=== PATIENT | male | born 1970 | race Caucasian/White ===

== ENCOUNTER 2019-03-05 10:45 | Emergency (ER) | payer MEDICARE, MEDICAID ==
[~2019-03-05] VITALS: Ht 182.9 cm; Wt 65.0 kg
[~2019-03-05 10:45] MED LIST: NO HOME MEDS
[2019-03-05 11:01] VITALS: BP 111/60
--- NOTE | 2019-03-05 11:47 | NUR ---
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
== END 2019-03-05 12:13 | disposition home or self-care (01) ==
LOC: ER 10:45
DX: K40.90 Unilateral inguinal hernia, without obstruction or gangrene, not specified as recurrent (principal); I50.9 Heart failure, unspecified; F12.90 Cannabis use, unspecified, uncomplicated; Z98.890 Other specified postprocedural states
CPT/HCPCS: 99281